=== PATIENT | male | born 2000 | race Caucasian/White ===

== ENCOUNTER 2021-11-20 17:06 | Emergency (ER) | payer OTHER, SELFPAY ==
[2021-11-20 17:26] VITALS: BP 134/65; PULSE 78; RESP 14; TEMP 37; O2SAT 100; BMI 27.8
--- NOTE | 2021-11-20 18:25 | ED.GENADULT ---
HPI - General Adult General Chief complaint: Urogenital-Male Stated complaint: Groin pressure/lump on right side x2 month Time Seen by Provider: 11/20/21 17:46 Source: patient Mode of arrival: Ambulatory History of Present Illness HPI narrative: Patient is a 21-year-old male here for evaluation of groin pressure and the lump of the right side. He states that he started noticing it a couple months ago. There is not 1 particular incident he was just when he was working out. Since that time he has had some discomfort in the area and becoming more irritated. And then when he started running it became somewhat more prominent. No problems urinating. No change in bowel habits. Patient is circumcised. No fevers. No prior abdominal surgeries. Related Data Allergies Allergy/AdvReac Type Severity Reaction Status Date / Time No Known Drug Allergies Allergy Verified 11/20/21 17:30 Review of Systems Constitutional Constitutional: Reports system reviewed and no additional complaints, except as documented Gastrointestinal Gastrointestinal: Reports as per HPI and Reports system reviewed and no additional complaints, except as documented Genitourinary Genitourinary: Reports system reviewed and no additional complaints, except as documented and Reports as per HPI Musculoskeletal Musculoskeletal: Reports system reviewed and no additional complaints, except as documented Integumentary/Breasts Skin/Breast: Reports system reviewed and no additional complaints, except as documented and Reports as per HPI Hematologic/Lymphatic On Anticoagulants: No Patient History Medical History Healthy adult Social History Smoking Status: Never smoker Smoking Status: Never smoker Substance Use Type: does not use Exam Initial Vital Signs Initial Vital Signs: Vital Signs Temperature 98.6 F 11/20/21 17:26 Pulse Rate 78 11/20/21 17:26 Respiratory Rate 14 11/20/21 17:26 Blood Pressure 134/65 11/20/21 17:26 Pulse Oximetry 100 11/20/21 17:26 HENMT Head: normal to inspection and normocephalic Resp Effort & Inspection: normal respiratory effort Cardio Rate: regular rate GI Other: Abdomen is soft. No masses felt. No inguinal hernias felt. Other: Circumcised. Bilateral testes descended. No masses felt. No hernia felt. Skin General: no rashes or lesions noted Extrem General: normal to inspection and capillary refill normal Psych Appearance: grossly normal Course Vital Signs Vital signs: Vital Signs - 8 hr 11/20/21 17:26 Temperature 98.6 F Pulse Rate 78 Respiratory Rate 14 Blood Pressure 134/65 Pulse Oximetry 100 Medical Decision Making MDM Narrative Medical decision making narrative: Right groin pain but no masses felt. No hernias. No lymph nodes felt. The skin overlying the area is unremarkable. I have to admitted does feel somewhat carrasco on the right inguinal area compared to the left lower this is in my opinion very nonspecific finding. Given the fact this has been going on for the past 2 months I do suspect that is a muscle strain. We discussed conservative treatments for now. He was given strict return precautions. He expressed understanding and agreement. Discharge Plan Departure Patient Disposition: Home Clinical Impression: Groin strain Instructions: Groin Strain Activity Restrictions/Additional Instructions: You can take Tylenol/ibuprofen for any discomfort. I do recommend that you cut back on the amount of exercises were your bending at the waist like we discussed. Contact your medical department for follow-up. Return to the emergency department for any new or worsening symptoms.
== END 2021-11-20 18:37 | disposition home or self-care (01) ==
PROVIDERS: Emergency Provider Emergency Medicine
DX: S39.011A Strain of muscle, fascia and tendon of abdomen, initial encounter (principal); X58.XXXA Exposure to other specified factors, initial encounter
CPT/HCPCS: 99281